=== PATIENT | male | born 1950 | race African-American/Black ===

== ENCOUNTER 2017-05-13 23:03 | Inpatient (IN) | payer OTHER ==
[~2017-05-13] VITALS: Ht 182.9 cm; Wt 96.7 kg
[2017-05-14] MEDS ORDERED: SODIUM CHLORIDE 0.9% 1000ML 1,000 ML IV STA ×2 (00:05→04:12)
[2017-05-14] MEDS ORDERED: ONDANSETRON INJ 2 MG/ML 2 ML VIAL IV STA (00:07)
[2017-05-14] MEDS ORDERED: DEXT1CAP8 PO (00:07)
--- NOTE | 2017-05-14 00:15 | EMERGENCY ROOM VISIT NOTE ---
History Report prepared by Shane: Tyson Kim Under the Supervision of: Dr. Jessika Garnica M.D. First contact with patient: 00:03 Chief Complaint: CHEST PAIN Stated Complaint: CHEST PAIN Nursing Triage Summary: Patient reports illness since Wednesday with chills, vomiting, unable to eat, and a cough that got worse tonight. History of Present Illness The patient is a 66 year old male who presents to the Emergency Room with complaints of a worsening illness for the past 4 days. The patient states that he has been having fevers, chills, body aches, cough, and chest congestion. The patient notes that he hasn't eaten since Wednesday, and he tried to eat yesterday, though he vomited it back up. The patient states that he has only been taking NyQuil, and he took it last night around 2200. He states that he does not take any medications, though he used to be prescribed blood pressure medications. The patient states that he was given a pneumonia shot this year. 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 He has been traveling the last few days, but unable to tolerate it. He has had little po intake and difficulty sleeping. Source of History: patient Onset: four days ago Position: other (global) Quality: other (illness) Timing: worsening Associated Symptoms: + fevers, + chills, + vomiting Note: Associated symptoms: body aches and chest congestion. Review of Systems See HPI for pertinent positives & negatives. A total of 10 systems reviewed and were otherwise negative. Past Medical & Surgical Medical Problems: (1) ARF (acute renal failure) Social History Smoking Status: Never Smoker Marital Status: single Occupation Status: employed Current/Historical Medications Scheduled PRN Ejvydpxtsjfkvgde-[id number]-Sj (Vicks Nyquil Cold & Flu), 1 CAP PO DIRECTED PRN for COLD/FLU Allergies Coded Allergies: Lisinopril (Verified Adverse Reaction, Intermediate, 0, 05/14/17) facial swelling Physical Exam Vital Signs Date Time Temp Pulse Resp B/P (MAP) Pulse Ox O2 Delivery O2 Flow Rate FiO2 05/14/17 02:52 95 20 151/96 99 05/14/17 01:33 84 18 152/89 98 Room Air 05/13/17 23:12 36.8 92 18 145/92 94 Room Air Physical Exam Vital signs reviewed. General: Somewhat ill appearing male, in some discomfort. HEENT: Posterior oropharynx is clear. No scleral icterus, PERRLA, neck supple. Atraumatic. Cardiovascular: Regular rate and rhythm, no extra sounds. Pulmonary: Crackles to the bases bilaterally. Abdomen: Mild epigastric tenderness. No rebound or guarding. No significant tympany to percussion. Soft, nondistended, positive bowel sounds. Musculoskeletal: Atraumatic, no peripheral edema. Neurologic: Patient awake alert and oriented x 3, full strength in all 4 extremities. Cranial nerves 2 through 12 grossly intact. Skin: Warm, dry, no rash Medical Decision & Procedures ER Provider Diagnostic Interpretation: X-ray results as stated below per interpretation by me: Chest X-ray: Patchy lung consolidation in the right middle and lower buck and left lower lung field. Radiology results as stated below per my review and radiologist interpretation: US RENAL: Simple cysts are seen within both kidneys. No stones, masses or hydronephrosis. The ureteral jets were not visualized. Thickening of the urinary bladder which may be secondary to underdistention. Correlate with urinalysis to exclude cystitis. Radiologist: Ernesto Aguilar MD CT CHEST Without Contrast: Patchy consolidation seen throughout the right lung likely representing multifocal pneumonia. No pleural effusion or pneumothorax. Heart and pericardium are unremarkable. No significant adenopathy. No acute osseous abnormality. Radiologist: Ernesto Aguilar MD Laboratory Results Test 05/13/17 23:30 05/14/17 00:08 05/14/17 00:29 05/14/17 00:32 Platelet Estimate NORMAL Total Bilirubin 0.9 mg/dl (0.2-1) Direct Bilirubin 0.2 mg/dl (0-0.2) Aspartate Amino Transf (AST/SGOT) 35 U/L (15-37) Alanine Aminotransferase (ALT/SGPT) 28 U/L (12-78) Alkaline Phosphatase 47 U/L (45-117) Creatine Kinase MB 3.7 ng/ml (0.5-3.6) Creatine Kinase MB Ratio 0.6 (0-3.0) Total Protein 7.2 gm/dl (6.4-8.2) Albumin 3.3 gm/dl (3.4-5.0) Lipase 222 U/L (73-393) Thyroid Stimulating Hormone (TSH) 1.120 uIu/ml (0.300-4.500) Influenza Type A Antigen Neg for Influ A (NEG) Influenza Type B Antigen Neg for Influ B (NEG) Urine Color YELLOW Urine Appearance TURBID (CLEAR) Urine pH 5.0 (4.5-7.5) Urine Specific [place] 1.023 (1.000-1.030) Urine Protein 1+ (NEG) Urine Glucose (UA) NEG (NEG) Urine Ketones NEG (NEG) Urine Occult Blood 1+ (NEG) Urine Nitrite NEG (NEG) Urine Bilirubin NEG (NEG) Urine Urobilinogen NEG (NEG) Urine Leukocyte Esterase NEG (NEG) Urine WBC (Auto) 5-10 /hpf (0-5) Urine RBC (Auto) 0-4 /hpf (0-4) Urine Hyaline Casts (Auto) 1-5 /lpf (0-5) Urine Epithelial Cells (Auto) >30 /lpf (0-5) Urine Bacteria (Auto) NEG (NEG) Urine Renal Epithelial Cells 0-5 /lpf (0-5) Urine Pathogenic Casts 1-5 GRANULAR CASTS /lpf (0) Urine Yeast (Auto) . (NONE PRSENT) Bedside Lactic Acid Venous 1.28 mmol/L (0.90-1.70) Date/Time Source Procedure Growth Status 05/14/17 00:29 Urine , Clean Catch Urine Culture - Final MORE THAN THREE TYPES OF ORGANISMS AZ... Complete Laboratory results per my review. Medications Administered Medications (Trade) Dose Ordered Sig/Mechelle Route Start Time Stop Time Status Last Admin Dose Admin Sodium Chloride 1,000 ml @ 150 mls/hr Q6H40M STAT IV 05/14/17 00:05 05/14/17 04:14 DC 05/14/17 00:37 150 MLS/HR Ondansetron HCl (Zofran Inj) 4 mg NOW STAT IV 05/14/17 00:07 05/14/17 00:08 DC 05/14/17 00:37 4 MG Ceftriaxone Sodium (Rocephin Inj) 1 gm NOW STAT IV 05/14/17 03:52 05/14/17 03:54 DC 05/14/17 04:16 1 GM Azithromycin 500 mg/Dextrose 255 ml @ 125 mls/hr NOW STAT IV 05/14/17 03:52 05/14/17 05:54 DC 05/14/17 04:48 125 MLS/HR Potassium Chloride (Klor-Con M10) 40 meq NOW STAT PO 05/14/17 04:05 05/14/17 04:09 DC 05/14/17 04:16 40 MEQ Sodium Chloride 1,000 ml @ 999 mls/hr Q1H1M STAT IV 05/14/17 04:12 05/14/17 05:12 DC 05/14/17 04:47 999 MLS/HR ECG Indication: other (Flu like symptoms) Rate (beats per minute): 90 Rhythm: normal sinus Findings: no acute ischemic change, no ectopy Change: Patient's electrocardiogram interpreted by me. ED Course 0003: Past medical records reviewed. The patient was evaluated in room C2. A complete history and physical examination was performed. 0005: Sodium Chloride 1000 ml @ 150 mls/hr IV 0007: Zofran 4mg IV 0352: Rocephin 1gm IV 0412: I reviewed the patient's case with Dr. Marisol Hickey. He will evaluate the patient for further management. Medical Decision Differential Diagnoses: Influenza, other viral illness, pneumonia, urinary tract infection, metabolic abnormality, medication effect, cellulitis, meningitis, intra-abdominal source. This pt was evaluated and appeared to be in some discomfort. He is noted to have HTN, which he states is baseline. He was given a BP medication which he couldn't tolerate d/t facial swelling, so he just stopped it. Influenza antigen is negative. Lab work indicates creat of 4.74 with a K of 3.2. IVF were initiated with IV zofran for nausea. Pt CXR is concerning for patchy infiltrates bilaterally. Blood cultures were sent and pt was started on IV ceftriaxone and azithromycin. Chest CT was performed and is read as above. Renal US was performed and is neg for obstruction. Pt case was d/w the hospitalist for further management. Medication Reconcilliation Current Medication List: was personally reviewed by me Blood Pressure Screening Patient's blood pressure: Elevated blood pressure Monitored by the hospitalist Consults Time Called: [phone] Consulting Physician: Dr. Marisol Hickey Returned Call: [phone] I reviewed the patient's case with Dr. Marisol Hickey. He will evaluate the patient for further management. Impression Primary Impression: Pneumonia Additional Impression: Acute renal failure Scribe Attestation The scribe's documentation has been prepared under my direction and personally reviewed by me in its entirety. I confirm that the note above accurately reflects all work, treatment, procedures, and medical decision making performed by me. Departure Information Dispostion Being Evaluated By Hospitalist Referrals No Doctor, Assigned (PCP) Patient Instructions [facility] Problem Qualifiers
[2017-05-14 00:39] LABS: INFLUENZA B ANTIGEN Neg for Influ B (NEG)
[2017-05-14 01:01] LABS: ALBUMIN 3.3 gm/dl (3.4-5.0); CALCIUM 8.2 mg/dl (8.5-10.1); CKMB 3.7 ng/ml (0.5-3.6); CREATININE 4.74 mg/dl (0.60-1.40); POTASSIUM 3.3 mmol/L (3.5-5.1); TOTAL PROTEIN 7.2 gm/dl (6.4-8.2)
[2017-05-14 01:07] LABS: HEMOGLOBIN 13.1 g/dL (14.0-18.0); MEAN CELL VOLUME 88.2 fL (80-100); MEAN CORPUSCULAR HEMOGLOBIN 30.4 pg (25-34); MEAN CORPUSCULAR HGB CONC 34.5 g/dl (32-36); MEAN PLATELET VOLUME 12.1 fL (7.4-10.4); PLATELET COUNT 129 K/uL (130-400); RED CELL DISTRIBUTION WIDTH CV 13.4 % (11.5-14.5); RED CELL DISTRIBUTION WIDTH SD 43.3 fL (36.4-46.3); WHITE BLOOD COUNT 6.65 K/uL (4.8-10.8)
[2017-05-14 01:08] LABS: BASO % 0.2 %; BASO ABS # 0.01 K/uL (0-0.2); EOS % 0.2 %; EOS ABS # 0.01 K/uL (0-0.5); IG# 0.02 K/uL (0.00-0.02); LYMPH % 10.5 %; NEUT % 82.8 %; NEUT ABS # 5.51 K/uL (1.4-6.5)
[2017-05-14] MEDS ORDERED: AZITHROMYCIN IV 500 MG in DEXTROSE 5% 250ML 250 ML IV STA (03:52)
[2017-05-14] MEDS ORDERED: CEFTRIAXONE SOD INJ 1 GM ADDVIAL IV STA (03:52)
[2017-05-14] MEDS ORDERED: POTASSIUM CHLORIDE 10 MEQ TABCR PO STA (04:05)
[2017-05-14 04:39] LABS: HEMATOCRIT 35.3 % (42-52); HEMOGLOBIN 12.1 g/dL (14.0-18.0); MEAN CELL VOLUME 87.2 fL (80-100); MEAN CORPUSCULAR HEMOGLOBIN 29.9 pg (25-34); MEAN CORPUSCULAR HGB CONC 34.3 g/dl (32-36); PLATELET COUNT 118 K/uL (130-400); RED CELL DISTRIBUTION WIDTH CV 13.2 % (11.5-14.5); RED CELL DISTRIBUTION WIDTH SD 42.6 fL (36.4-46.3); WHITE BLOOD COUNT 6.67 K/uL (4.8-10.8)
[2017-05-14 04:54] LABS: BASO % 0.1 %; BASO ABS # 0.01 K/uL (0-0.2); IG# 0.02 K/uL (0.00-0.02); LYMPH % 10.9 %; LYMPH ABS # 0.73 K/uL (1.2-3.4); MONO ABS # 0.67 K/uL (0.11-0.59); NEUT % 78.7 %; NEUT ABS # 5.24 K/uL (1.4-6.5); RETIC COUNT % 0.7 % (0.5-2.0)
[2017-05-14 05:02] LABS: CALCIUM 7.7 mg/dl (8.5-10.1); CREATININE 4.46 mg/dl (0.60-1.40); POTASSIUM 3.2 mmol/L (3.5-5.1)
[2017-05-14 05:14] LABS: PTT PATIENT 33.6 SECONDS (21.0-31.0)
[2017-05-14 05:15] VITALS: BP 162/84; PULSE 91; TEMP 37.3; O2SAT 96; Ht 182.9 cm; Wt 96.7 kg
[2017-05-14] MEDS ORDERED: AMPICILLIN/SULBACTAM SOD INJ 3,000 MG in SODIUM CHLORIDE 0.9% 100ML 100 ML IV STA (05:22)
[2017-05-14] MEDS ORDERED: AMLODIPINE BESYLATE 5 MG TAB PO ONE (05:28)
[2017-05-14] MEDS ORDERED: ALBUT/IPRATROP 3MG/0.5MG NEB 3 ML VIAL INH STA (05:28)
[2017-05-14] MEDS ORDERED: ALBUT/IPRATROP 3MG/0.5MG NEB 3 ML VIAL INH PRN (05:30)
[2017-05-14] MEDS ORDERED: PROCHLORPERAZINE INJ 5 MG in SYRINGE 4 ML IV PRN (05:30)
[2017-05-14] MEDS ORDERED: HYDROmorphone INJ 0.5 MG/0.5 ML SYR IV PRN (05:30)
[2017-05-14] MEDS ORDERED: INFLUENZA VIRUS QUAD VACCINE 0.5 ML SYR IM. ONE (05:30)
[2017-05-14] MEDS ORDERED: INFLUENZA ADMINISTRATION CHARGE ONE (05:45)
[2017-05-14] MEDS ORDERED: HEPARIN SOD 5000 UNIT/0.5 ML CARP SQ SCH (06:00)
[2017-05-14] MEDS: ACETAMINOPHEN 325 MG TAB PO PRN ×2 (06:08→19:41)
[2017-05-14] MEDS: NSS + 20MEQ KCL 1000ML 1,000 ML IV SCH ×2 (06:09→15:50)
[2017-05-14 06:22] VITALS: PULSE 90; O2SAT 91
--- NOTE | 2017-05-14 06:47 | DIAGNOSTIC IMAGING REPORT ---
CHEST ONE VIEW PORTABLE CLINICAL HISTORY: Flulike symptoms COMPARISON STUDY: No previous studies for comparison. FINDINGS: The heart is borderline enlarged. There are right mid and lower lung zone airspace opacities consistent with a pneumonia. Films subsequent to treatment are recommended in follow-up. The left lung appears clear. There are no significant pleural effusions.[ IMPRESSION: Right mid and lower lung zone airspace opacities consistent with a pneumonia. Films subsequent to treatment are recommended in follow-up. Electronically signed by: Drew Paige M.D. 05/14/2017 6:46 AM Dictated Date/Time: 05/14/2017 6:45 AM
--- NOTE | 2017-05-14 07:12 | HISTORY & PHYSICAL EXAMINATION ---
DATE OF ADMISSION: 05/14/2017 PRIMARY CARE DOCTOR: Dr. Harrison Martínez from [place], [place]. CHIEF COMPLAINT: Weakness, shortness of breath, cough. HISTORY OF PRESENT ILLNESS: History obtained from patient and ER provider. 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 Five days ago he left [place] to deliver some goods to [place]. Was sick, weak, cough symptoms initially productive of clear sputum. Patient also had chills, body aches, nausea, vomiting, poor appetite. Cough later productive of yellow sputum, worsening, increasing shortness of breath. Sick contacts about 2 weeks ago. Patient taking 2 tablets [id number] Aleve daily, NyQuil since illness. Denies abdominal pain, black/bloody stools, diarrhea He had dropped off a shipment at [place] and was on his way back to [place]. He could not proceed any longer. At the Emergency Room, px received ceftriaxone and azithromycin for pneumonia. MEDICAL HISTORY: As above. No known history of anemia, kidney problems. He had a colonoscopy about 2 years ago. Started on RYAN inhibitor by PCP last month which patient stopped after a few days because it made him sick, facial swelling from medication as per daughter. History pneumococcal vaccine. No recent seasonal flu vaccine. MEDICATIONS: Aleve p.r.n. FAMILY HISTORY: Prostate cancer. PERSONAL AND SOCIAL HISTORY: Nonsmoker, no chronic intake of alcoholic beverages. 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 -[place] ethnicity. REVIEW OF SYSTEMS: As per HPI. Al1 10 systems reviewed. All other ROS negative. PHYSICAL EXAMINATION: VITAL SIGNS: Blood pressure was noted to be 145/92, pulse rate 92, RR 18, temperature 36.8, sats 94 on room air. GENERAL: Noted to be slightly uncomfortable, no respiratory distress, pleasant. SKIN: Pallor. Warm. HEENT: Alopecia. Pale palpebral conjunctivae. No ptosis. Dry mucosa. Mask covering nose and mouth. Neck : Supple. No tenderness. CHEST: Clear to auscultation. No tenderness. HEART: Regular rate and rhythm. No murmur. ABDOMEN: Some distention, nontender. RECTAL: Intact sphincter, yellow stool, heme negative. EXTREMITIES: No edema. Nontender. No gross deformities. NEUROLOGIC: Coherent. No gross focality. LABORATORY DATA: Hemoglobin was noted to be 13.1, hematocrit 38, white cell count 6.6, platelets 129. Sodium 134, potassium 3.3, chloride 97, CO2 of 28, BUN 60, creatinine 4.74, glucose 141. CT chest initial read patchy consolidation right lung, multifocal. Renal ultrasound initial read simple cyst, thickening of the bladder secondary to underdistention. UA, occult blood, epithelial cells, WBC 5-10. Initial flu swab negative ASSESSMENT: 1. Community-acquired pneumonia possible aspiration. No sepsis 2. Hypokalemia, acute renal failure secondary to illness, clinical dehydration. Unknown baseline NSAID use contributory to kidney dysfunction 3. HTN, elevated hx ACEI intolerance 4. Anemia, unknown baseline. 5. thrombocytopenia, unknown duration 6. Hyperglycemia rule out DM PLAN: GMF Unasyn for aspiration monitor creatinine response to IV fluids, replace potassium. Initiate Norvasc for blood pressure control. Anemia workup. Check hemoglobin A1c PT, OT eval. Obtain recent outpatient records/labwork DVT prophylaxis, SCDs RE thrombocytopenia Full code. Patient's daughter requesting updated from providers. Miss Radha Daniels at [phone]. [facility]
[2017-05-14 07:24] VITALS: BP 125/73; PULSE 93; TEMP 37.3; O2SAT 96
--- NOTE | 2017-05-14 07:25 | DIAGNOSTIC IMAGING REPORT ---
(CHEST) THORAX WITHOUT CT DOSE: 429.88 mGy.cm HISTORY: pulmonary infiltrates, no fever, normal WBC TECHNIQUE: Multiaxial CT images of the chest were performed without contrast. A dose lowering technique was utilized adhering to the principles of ALARA. COMPARISON: Chest 05/14/2017. FINDINGS: The central airways are patent. No pneumothorax. No pleural effusions. Linear densities at the base of the left lower lobe consistent with subsegmental atelectasis. Otherwise, the left lung is clear. Patchy groundglass and consolidative airspace opacity seen throughout the majority of the right lung. This favors a pneumonia. No suspicious lytic or blastic osseous lesions. The visualized liver, spleen, and adrenal glands are unremarkable. Subcentimeter mediastinal lymph nodes do not meet CT criteria for pathologic involvement. The heart is top normal in size. Normal caliber thoracic aorta. IMPRESSION: Multifocal groundglass and consolidative airspace opacities seen throughout the majority of the right lung. This favors a pneumonia. However, follow-up chest x-ray is recommended to ensure complete resolution. If the patient is not presenting with pneumonia type symptoms then bronchoscopy should be considered to exclude the less likely possibility of an adenocarcinoma in situ. Electronically signed by: Darnell Ulrich M.D. 05/14/2017 7:24 AM Dictated Date/Time: 05/14/2017 7:18 AM
--- NOTE | 2017-05-14 07:27 | DIAGNOSTIC IMAGING REPORT ---
ULTRASOUND KIDNEYS AND BLADDER CLINICAL HISTORY: Renal failure. COMPARISON STUDY: No priors. TECHNIQUE: Real-time, grayscale, and color flow sonography of the kidneys and bladder is performed. Images are reviewed in the transverse and longitudinal planes. FINDINGS: Kidneys: The kidneys are normal in size and echotexture. The right kidney measures 10.8 x 5.7 x 5.2 cm and the left kidney measures 12.2 x 5.8 x 6.1 cm. There is no hydronephrosis. No shadowing renal calculi are identified. A 2.5 cm parapelvic cyst is noted on the right. A 5.3 cm cyst is noted in the left kidney. Additional smaller cysts are noted. There is no sonographic evidence of contour deforming renal mass lesion. No perinephric fluid is identified. Bladder: The partially distended bladder appears mildly thick walled. Ureteral jets were not seen. IMPRESSION: 1. The kidneys are normal in size and without hydronephrosis. 2. The bladder wall appears mildly thickened. Correlation with urinalysis will be required. Electronically signed by: Luis Alanis M.D. 05/14/2017 7:25 AM Dictated Date/Time: 05/14/2017 7:24 AM
[2017-05-14 07:28] LABS: INFLUENZA A PCR Uninterpretable (NEG); INFLUENZA B PCR Uninterpretable (NEG)
[2017-05-14] MEDS ORDERED: AMPICILLIN/SULBACTAM CONSULT ACTIVE PRN (09:00)
[2017-05-14 12:48] LABS: INFLUENZA A PCR POS for Influ A (NEG); INFLUENZA B PCR Neg for Influ B (NEG)
[2017-05-14] MEDS ORDERED: OSELTAMIVIR PHOSPHATE SUSP 30 MG/5 ML UDP PO ONE (13:15)
[2017-05-14] MEDS ORDERED: TAMIFLU PHARMACY CONSULT IN PROGRESS PRN (14:45)
[2017-05-14] MEDS: OSELTAMIVIR PHOSPHATE SUSP 30 MG/5 ML UDP PO SCH (15:10)
[2017-05-14 15:44] VITALS: BP 138/78; PULSE 79; TEMP 38; O2SAT 95
[2017-05-14] MEDS: AMPICILLIN/SULBACTAM SOD INJ 3,000 MG in SODIUM CHLORIDE 0.9% 100ML 100 ML IV SCH (17:58)
--- NOTE | 2017-05-14 20:35 | Progress Note ---
Medicine Progress Note Date & Time of Visit: May 14, 2017 at ~ 17:00 . Subjective CC: Follow-up visit for influenza and VAN. HPI: Admitted during the night with flu symptoms and acute kidney injury. Influenza Ag negative, but PCR + for influenza A. Febrile this afternoon. Generalized malaise. Intermittent coughing. ROS: General- as noted above in HPI Resp- as noted above in HPI Cardiac- no chest pain, no edema GI- no nausea, no vomiting, no diarrhea - no dysuria, no difficulty voiding . Objective Last 8 Hrs Date Time Temp Pulse Resp B/P (MAP) Pulse Ox O2 Delivery O2 Flow Rate FiO2 05/14/17 16:00 Room Air 05/14/17 15:44 38.0 79 20 138/78 (98) 95 Room Air Physical Exam: General- lying in bed; no distress Eyes- anicteric Lungs- clear to auscultation; no respiratory distress Cardiovascular- RRR; no gallop; no JVD; no pretibial edema Abdomen- + bowel sounds, soft, nontender Extremities- no cyanosis; no calf tenderness Neuro- alert, oriented Skin- warm & dry . Laboratory Results: Last 24 Hours Test 05/13/17 23:30 05/14/17 00:00 05/14/17 00:08 05/14/17 00:29 White Blood Count 6.65 K/uL Red Blood Count 4.31 M/uL Hemoglobin 13.1 g/dL Hematocrit 38.0 % Mean Corpuscular Volume 88.2 fL Mean Corpuscular Hemoglobin 30.4 pg Mean Corpuscular Hemoglobin Concent 34.5 g/dl Platelet Count 129 K/uL Mean Platelet Volume 12.1 fL Neutrophils (%) (Auto) 82.8 % Lymphocytes (%) (Auto) 10.5 % Monocytes (%) (Auto) 6.0 % Eosinophils (%) (Auto) 0.2 % Basophils (%) (Auto) 0.2 % Neutrophils # (Auto) 5.51 K/uL Lymphocytes # (Auto) 0.70 K/uL Monocytes # (Auto) 0.40 K/uL Eosinophils # (Auto) 0.01 K/uL Basophils # (Auto) 0.01 K/uL RDW Standard Deviation 43.3 fL RDW Coefficient of Variation 13.4 % Immature Granulocyte % (Auto) 0.3 % Immature Granulocyte # (Auto) 0.02 K/uL Platelet Estimate NORMAL Sodium Level 134 mmol/L Potassium Level 3.3 mmol/L Chloride Level 97 mmol/L Carbon Dioxide Level 28 mmol/L Anion Gap 9.0 mmol/L Blood Urea Nitrogen 62 mg/dl Creatinine 4.74 mg/dl Est Creatinine Clear Calc Drug Dose 18.6 ml/min Estimated GFR () 13.8 Estimated GFR (Non- 11.9 BUN/Creatinine Ratio 13.0 Random Glucose 141 mg/dl Calcium Level 8.2 mg/dl Total Bilirubin 0.9 mg/dl Direct Bilirubin 0.2 mg/dl Aspartate Amino Transf (AST/SGOT) 35 U/L Alanine Aminotransferase (ALT/SGPT) 28 U/L Alkaline Phosphatase 47 U/L Total Creatine Kinase 650 U/L Creatine Kinase MB 3.7 ng/ml Creatine Kinase MB Ratio 0.6 Total Protein 7.2 gm/dl Albumin 3.3 gm/dl Lipase 222 U/L Thyroid Stimulating Hormone (TSH) 1.120 uIu/ml Influenza Type A (RT-PCR) Uninterpretable Influenza Type B (RT-PCR) Uninterpretable Influenza Type A Antigen Neg for Influ A Influenza Type B Antigen Neg for Influ B Urine Color YELLOW Urine Appearance TURBID Urine pH 5.0 Urine Specific [place] 1.023 Urine Protein 1+ Urine Glucose (UA) NEG Urine Ketones NEG Urine Occult Blood 1+ Urine Nitrite NEG Urine Bilirubin NEG Urine Urobilinogen NEG Urine Leukocyte Esterase NEG Urine WBC (Auto) 5-10 /hpf Urine RBC (Auto) 0-4 /hpf Urine Hyaline Casts (Auto) 1-5 /lpf Urine Epithelial Cells (Auto) >30 /lpf Urine Bacteria (Auto) NEG Urine Renal Epithelial Cells 0-5 /lpf Urine Pathogenic Casts 1-5 GRANULAR CASTS /lpf Urine Yeast (Auto) . Test 05/14/17 00:32 05/14/17 04:24 05/14/17 10:15 Bedside Lactic Acid Venous 1.28 mmol/L White Blood Count 6.67 K/uL Red Blood Count 4.05 M/uL Hemoglobin 12.1 g/dL Hematocrit 35.3 % Mean Corpuscular Volume 87.2 fL Mean Corpuscular Hemoglobin 29.9 pg Mean Corpuscular Hemoglobin Concent 34.3 g/dl Platelet Count 118 K/uL Mean Platelet Volume 12.0 fL Neutrophils (%) (Auto) 78.7 % Lymphocytes (%) (Auto) 10.9 % Monocytes (%) (Auto) 10.0 % Eosinophils (%) (Auto) 0.0 % Basophils (%) (Auto) 0.1 % Neutrophils # (Auto) 5.24 K/uL Lymphocytes # (Auto) 0.73 K/uL Monocytes # (Auto) 0.67 K/uL Eosinophils # (Auto) 0.00 K/uL Basophils # (Auto) 0.01 K/uL RDW Standard Deviation 42.6 fL RDW Coefficient of Variation 13.2 % Immature Granulocyte % (Auto) 0.3 % Immature Granulocyte # (Auto) 0.02 K/uL Hyposegmented Neutrophils 1+ Absolute Reticulocyte Count 0.03 10^6/uL Percent Reticulocyte Count 0.7 % Prothrombin Time 10.2 SECONDS Prothromb Time International Ratio 1.0 Activated Partial Thromboplast Time 33.6 SECONDS Partial Thromboplastin Ratio 1.3 Sodium Level 135 mmol/L Potassium Level 3.2 mmol/L Chloride Level 101 mmol/L Carbon Dioxide Level 25 mmol/L Anion Gap 9.0 mmol/L Blood Urea Nitrogen 59 mg/dl Creatinine 4.46 mg/dl Est Creatinine Clear Calc Drug Dose 19.8 ml/min Estimated GFR () 14.8 Estimated GFR (Non- 12.8 BUN/Creatinine Ratio 13.2 Random Glucose 92 mg/dl Estimated Average Glucose 126 mg/dl Hemoglobin A1c 6.0 % Calcium Level 7.7 mg/dl Magnesium Level 2.4 mg/dl Iron Level 35 mcg/dl Total Iron Binding Capacity 199 mcg/dl Transferrin 157 mg/dl Transferrin % Saturation 16 % Ferritin 435.9 ng/ml Total Creatine Kinase 533 U/L Vitamin B12 Level 453 pg/mL Folate 10.26 ng/mL Hepatitis C Antibody Screen NEG Influenza Type A (RT-PCR) POS for Influ A Influenza Type B (RT-PCR) Neg for Influ B Date/Time Source Procedure Growth Status 05/14/17 00:27 Blood Blood Culture Pending Received 05/14/17 00:23 Blood Blood Culture Pending Received 05/14/17 00:29 Urine , Clean Catch Urine Culture Pending Received Assessment & Plan INFLUENZA A Confirmed by PCR. Oseltamivir with reduced dose for VAN. PNEUMONIA Chest x-ray demonstrated infiltrates in right mid and lower lung. Has influenza A. May have superimposed pneumonia, possibly aspiration. Continue Rx with IV ampicillin / sulbactam. ACUTE KIDNEY INJURY Serum creatinine 4.74 at time of admission. No history renal disease. Renal US negative for obstruction or apparent CKD. Patient reports poor PO intake because of illness. Continue IV fluids. Follow. HYPOKALEMIA Serum K 3.3, 3.2. IV replacement. Follow. HYPERTENSION Continue amlodipine. ANEMIA Hgb 13.1, 12.1. Baseline unknown. Follow. THROMBOCYTOPENIA Plts 129,000, 118,000. Baseline unknown. Follow. VTE PROPHYLAXIS Received 1 dose of SQ heparin, but held due to thrombocytopenia. SCD's. Ambulate. DISPOSITION Expected discharge to home. Follow-up with PCP. . Current Inpatient Medications: Current Inpatient Medications Medications (Trade) Dose Ordered Sig/Mechelle Route Start Time Stop Time Status Last Admin Dose Admin Acetaminophen (Tylenol Tab) 650 mg Q4H PRN PO 05/14/17 05:30 06/13/17 05:29 05/14/17 19:41 650 MG Hydromorphone HCl (Dilaudid Inj) 0.5 mg Q3H PRN IV 05/14/17 05:30 05/28/17 05:29 Tramadol HCl (Ultram Tab) 25 mg Q6H PRN PO 05/14/17 05:30 06/13/17 05:29 Prochlorperazine Edisylate 5 mg/ Syringe 5 ml @ 5 mls/min Q6H PRN IV 05/14/17 05:30 06/13/17 05:29 Potassium Chloride/Sodium Chloride 1,000 ml @ 100 mls/hr Q10H IV 05/14/17 05:30 05/15/17 05:29 05/14/17 15:50 100 MLS/HR Albuterol/ Ipratropium (Duoneb) 3 ml Q2H PRN INH 05/14/17 05:30 06/13/17 05:29 Ampicillin Sodium/ Sulbactam Sodium (Consult) 1 ea UD PRN N/A 05/14/17 09:00 06/13/17 08:59 Amlodipine Besylate (Norvasc Tab) 2.5 mg QAM PO 05/15/17 09:00 06/14/17 08:59 Ampicillin Sodium/ Sulbactam Sodium 3000 mg/Sodium Chloride 108 ml @ 216 mls/hr Q12H IV 05/14/17 18:00 05/21/17 17:59 05/14/17 17:58 216 MLS/HR Oseltamivir Phosphate (Tamiflu Susp) 30 mg DAILY PO 05/14/17 14:45 05/18/17 09:01 05/14/17 15:10 30 MG Miscellaneous Information 1 ea UD PRN N/A 05/14/17 14:45 06/13/17 14:44
[2017-05-14 23:58] VITALS: BP 148/83; PULSE 70; TEMP 37.4; O2SAT 95
[2017-05-15] MEDS: NSS + 20MEQ KCL 1000ML 1,000 ML IV SCH ×3 (01:58→20:03)
[2017-05-15] MEDS: AMPICILLIN/SULBACTAM SOD INJ 3,000 MG in SODIUM CHLORIDE 0.9% 100ML 100 ML IV SCH ×2 (05:33→17:30)
[2017-05-15 06:18] LABS: BASO % 0.2 %; BASO ABS # 0.01 K/uL (0-0.2); HEMOGLOBIN 11.1 g/dL (14.0-18.0); IG# 0.02 K/uL (0.00-0.02); LYMPH % 20.9 %; LYMPH ABS # 1.16 K/uL (1.2-3.4); MEAN CELL VOLUME 88.5 fL (80-100); MEAN CORPUSCULAR HEMOGLOBIN 29.8 pg (25-34); MEAN CORPUSCULAR HGB CONC 33.6 g/dl (32-36); MEAN PLATELET VOLUME 11.5 fL (7.4-10.4); MONO % 14.1 %; MONO ABS # 0.78 K/uL (0.11-0.59); NEUT % 64.4 %; NEUT ABS # 3.57 K/uL (1.4-6.5); PLATELET COUNT 125 K/uL (130-400); RED CELL DISTRIBUTION WIDTH CV 13.5 % (11.5-14.5); WHITE BLOOD COUNT 5.54 K/uL (4.8-10.8)
[2017-05-15 06:57] LABS: CALCIUM 7.7 mg/dl (8.5-10.1); CREATININE 4.24 mg/dl (0.60-1.40)
[2017-05-15 07:13] VITALS: BP 149/82; PULSE 74; TEMP 37.6; O2SAT 95
[2017-05-15] MEDS: AMLODIPINE BESYLATE 5 MG TAB PO SCH (08:04)
[2017-05-15] MEDS: OSELTAMIVIR PHOSPHATE SUSP 30 MG/5 ML UDP PO SCH (08:05)
[2017-05-15] MEDS: ACETAMINOPHEN 325 MG TAB PO PRN (08:05)
[2017-05-15 15:17] VITALS: BP 156/90; PULSE 74; TEMP 37.1; O2SAT 95
--- NOTE | 2017-05-15 17:16 | Progress Note ---
Medicine Progress Note Date & Time of Visit: May 15, 2017 at 16:00 . Subjective CC: Follow-up visit for influenza, pneumonia, and VAN. HPI: Feels better. No fever. Cough improved. No SOB. No chest pain. No nausea, vomiting, diarrhea. No urinary symptoms. 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). ROS: as noted above in HPI . Objective Last 8 Hrs Date Time Temp Pulse Resp B/P (MAP) Pulse Ox O2 Delivery O2 Flow Rate FiO2 05/15/17 15:59 Room Air 05/15/17 15:17 37.1 74 18 156/90 (112) 95 Room Air Physical Exam: General- lying in bed; no distress Eyes- anicteric Lungs- rales, rhonchi right chest; no respiratory distress Cardiovascular- RRR; no gallop; no JVD; no pretibial edema Abdomen- + bowel sounds, soft, nontender Extremities- no cyanosis; no calf tenderness Neuro- alert, oriented Skin- warm & dry . Laboratory Results: Last 24 Hours Test 05/15/17 05:46 White Blood Count 5.54 K/uL Red Blood Count 3.73 M/uL Hemoglobin 11.1 g/dL Hematocrit 33.0 % Mean Corpuscular Volume 88.5 fL Mean Corpuscular Hemoglobin 29.8 pg Mean Corpuscular Hemoglobin Concent 33.6 g/dl Platelet Count 125 K/uL Mean Platelet Volume 11.5 fL Neutrophils (%) (Auto) 64.4 % Lymphocytes (%) (Auto) 20.9 % Monocytes (%) (Auto) 14.1 % Eosinophils (%) (Auto) 0.0 % Basophils (%) (Auto) 0.2 % Neutrophils # (Auto) 3.57 K/uL Lymphocytes # (Auto) 1.16 K/uL Monocytes # (Auto) 0.78 K/uL Eosinophils # (Auto) 0.00 K/uL Basophils # (Auto) 0.01 K/uL RDW Standard Deviation 44.0 fL RDW Coefficient of Variation 13.5 % Immature Granulocyte % (Auto) 0.4 % Immature Granulocyte # (Auto) 0.02 K/uL Sodium Level 137 mmol/L Potassium Level 4.0 mmol/L Chloride Level 107 mmol/L Carbon Dioxide Level 25 mmol/L Anion Gap 5.0 mmol/L Blood Urea Nitrogen 51 mg/dl Creatinine 4.24 mg/dl Est Creatinine Clear Calc Drug Dose 20.7 ml/min Estimated GFR () 15.8 Estimated GFR (Non- 13.6 BUN/Creatinine Ratio 12.0 Random Glucose 85 mg/dl Calcium Level 7.7 mg/dl Assessment & Plan INFLUENZA A Confirmed by PCR. Oseltamivir with reduced dose for VAN. PNEUMONIA Chest x-ray demonstrated infiltrates in right mid and lower lung. Has influenza A. May have superimposed pneumonia, possibly aspiration. Continue Rx with IV ampicillin / sulbactam. ACUTE KIDNEY INJURY Serum creatinine 4.74 at time of admission. No history renal disease. Renal US negative for obstruction or apparent CKD. Patient reports poor PO intake because of illness. Serum creatinine this today = 4.24. Continue IV fluids. Follow. HYPOKALEMIA Serum K 3.3, 3.2. IV replacement. K today = 4.0. Follow. HYPERTENSION Continue amlodipine. ANEMIA Hgb 13.1, 12.111.1. Baseline unknown. Follow. THROMBOCYTOPENIA Plts 129,000, 118,000, 125,000. Baseline unknown. Follow. VTE PROPHYLAXIS Received 1 dose of SQ heparin, but held due to thrombocytopenia. SCD's. Plt count improving; resume SQ heparin. Ambulate. DISPOSITION Expected discharge to home. Follow-up with PCP. . Current Inpatient Medications: Current Inpatient Medications Medications (Trade) Dose Ordered Sig/Mechelle Route Start Time Stop Time Status Last Admin Dose Admin Acetaminophen (Tylenol Tab) 650 mg Q4H PRN PO 05/14/17 05:30 06/13/17 05:29 05/15/17 08:05 650 MG Hydromorphone HCl (Dilaudid Inj) 0.5 mg Q3H PRN IV 05/14/17 05:30 05/28/17 05:29 Tramadol HCl (Ultram Tab) 25 mg Q6H PRN PO 05/14/17 05:30 06/13/17 05:29 Prochlorperazine Edisylate 5 mg/ Syringe 5 ml @ 5 mls/min Q6H PRN IV 05/14/17 05:30 06/13/17 05:29 Potassium Chloride/Sodium Chloride 1,000 ml @ 150 mls/hr Q6H40M IV 05/14/17 05:30 06/12/17 05:29 05/15/17 11:41 100 MLS/HR Albuterol/ Ipratropium (Duoneb) 3 ml Q2H PRN INH 05/14/17 05:30 06/13/17 05:29 Ampicillin Sodium/ Sulbactam Sodium (Consult) 1 ea UD PRN N/A 05/14/17 09:00 06/13/17 08:59 Amlodipine Besylate (Norvasc Tab) 2.5 mg QAM PO 05/15/17 09:00 06/14/17 08:59 05/15/17 08:04 2.5 MG Ampicillin Sodium/ Sulbactam Sodium 3000 mg/Sodium Chloride 108 ml @ 216 mls/hr Q12H IV 05/14/17 18:00 05/21/17 17:59 05/15/17 05:33 216 MLS/HR Oseltamivir Phosphate (Tamiflu Susp) 30 mg DAILY PO 05/14/17 14:45 05/18/17 09:01 05/15/17 08:05 30 MG Miscellaneous Information 1 ea UD PRN N/A 05/14/17 14:45 06/13/17 14:44
[2017-05-15] MEDS: HEPARIN SOD 5000 UNIT/0.5 ML CARP SQ SCH (20:03)
[2017-05-15 23:48] VITALS: BP 176/90; PULSE 81; TEMP 37.1; O2SAT 93
[2017-05-16] MEDS: NSS + 20MEQ KCL 1000ML 1,000 ML IV SCH ×4 (01:44→22:13)
[2017-05-16] MEDS: ACETAMINOPHEN 325 MG TAB PO PRN (01:44)
[2017-05-16 02:45] VITALS: BP 156/83; PULSE 77
[2017-05-16] MEDS: AMPICILLIN/SULBACTAM SOD INJ 3,000 MG in SODIUM CHLORIDE 0.9% 100ML 100 ML IV SCH ×2 (05:48→18:01)
[2017-05-16 07:13] LABS: HEMATOCRIT 32.3 % (42-52); HEMOGLOBIN 11.1 g/dL (14.0-18.0); MEAN CELL VOLUME 87.8 fL (80-100); MEAN CORPUSCULAR HEMOGLOBIN 30.2 pg (25-34); MEAN CORPUSCULAR HGB CONC 34.4 g/dl (32-36); MEAN PLATELET VOLUME 10.6 fL (7.4-10.4); PLATELET COUNT 124 K/uL (130-400); RED CELL DISTRIBUTION WIDTH CV 13.3 % (11.5-14.5); WHITE BLOOD COUNT 6.44 K/uL (4.8-10.8)
[2017-05-16 07:16] VITALS: BP 173/95; PULSE 71; TEMP 37.1; O2SAT 96
[2017-05-16 07:45] LABS: CALCIUM 7.7 mg/dl (8.5-10.1); CREATININE 3.56 mg/dl (0.60-1.40); POTASSIUM 4.3 mmol/L (3.5-5.1)
[2017-05-16] MEDS: OSELTAMIVIR PHOSPHATE SUSP 30 MG/5 ML UDP PO SCH (08:11)
[2017-05-16] MEDS: HEPARIN SOD 5000 UNIT/0.5 ML CARP SQ SCH ×2 (08:12→22:13)
[2017-05-16 08:31] LABS: BASO % 0.2 %; BASO ABS # 0.01 K/uL (0-0.2); EOS % 0.2 %; EOS ABS # 0.01 K/uL (0-0.5); IG# 0.05 K/uL (0.00-0.02); LYMPH % 24.5 %; LYMPH ABS # 1.58 K/uL (1.2-3.4); MONO % 18.6 %; NEUT % 55.7 %; NEUT ABS # 3.59 K/uL (1.4-6.5)
[2017-05-16] MEDS: AMLODIPINE BESYLATE 5 MG TAB PO SCH (08:48)
[2017-05-16 15:09] VITALS: BP 147/82; PULSE 70; TEMP 36.9; O2SAT 97
--- NOTE | 2017-05-16 19:52 | Progress Note ---
Medicine Progress Note Date & Time of Visit: May 16, 2017 at 15:30 . Subjective CC: Follow-up visit for influenza, pneumonia, and VAN. HPI: Feels better. No fever. Persistent congested cough; mild SOB. No chest pain. Few loose stools today. No nausea, vomiting. Urine output good; no dysuria. ROS: as noted above in HPI . Objective Last 8 Hrs Date Time Temp Pulse Resp B/P (MAP) Pulse Ox O2 Delivery O2 Flow Rate FiO2 05/16/17 16:00 Room Air 05/16/17 15:09 36.9 70 18 147/82 (103) 97 Room Air Physical Exam: General- lying in bed; no distress Eyes- anicteric Lungs- rales, rhonchi right chest; no respiratory distress Cardiovascular- RRR; no gallop; no JVD; no pretibial edema Abdomen- + bowel sounds, soft, nontender Extremities- no cyanosis; no calf tenderness Neuro- alert, oriented Skin- warm & dry . Laboratory Results: Last 24 Hours Test 05/16/17 07:03 White Blood Count 6.44 K/uL Red Blood Count 3.68 M/uL Hemoglobin 11.1 g/dL Hematocrit 32.3 % Mean Corpuscular Volume 87.8 fL Mean Corpuscular Hemoglobin 30.2 pg Mean Corpuscular Hemoglobin Concent 34.4 g/dl Platelet Count 124 K/uL Mean Platelet Volume 10.6 fL Neutrophils (%) (Auto) 55.7 % Lymphocytes (%) (Auto) 24.5 % Monocytes (%) (Auto) 18.6 % Eosinophils (%) (Auto) 0.2 % Basophils (%) (Auto) 0.2 % Neutrophils # (Auto) 3.59 K/uL Lymphocytes # (Auto) 1.58 K/uL Monocytes # (Auto) 1.20 K/uL Eosinophils # (Auto) 0.01 K/uL Basophils # (Auto) 0.01 K/uL RDW Standard Deviation 43.0 fL RDW Coefficient of Variation 13.3 % Immature Granulocyte % (Auto) 0.8 % Immature Granulocyte # (Auto) 0.05 K/uL Large Platelets 1+ Sodium Level 140 mmol/L Potassium Level 4.3 mmol/L Chloride Level 110 mmol/L Carbon Dioxide Level 22 mmol/L Anion Gap 8.0 mmol/L Blood Urea Nitrogen 41 mg/dl Creatinine 3.56 mg/dl Est Creatinine Clear Calc Drug Dose 24.6 ml/min Estimated GFR () 19.5 Estimated GFR (Non- 16.8 BUN/Creatinine Ratio 11.5 Random Glucose 81 mg/dl Calcium Level 7.7 mg/dl Assessment & Plan INFLUENZA A Confirmed by PCR. Oseltamivir with reduced dose for VAN. PNEUMONIA Chest x-ray demonstrated infiltrates in right mid and lower lung. Has influenza A as discussed above. May have superimposed pneumonia, possibly aspiration. Continue Rx with IV ampicillin / sulbactam. ACUTE KIDNEY INJURY Serum creatinine 4.74 at time of admission. No history renal disease. Renal US negative for obstruction or apparent CKD. Patient reports poor PO intake because of illness. Serum creatinine this today = 3.56. Continue IV fluids. Follow. HYPOKALEMIA Serum K 3.3, 3.2. IV replacement. K today = 4.3. Follow. HYPERTENSION Continue amlodipine. ANEMIA Hgb 13.1 --> --> 11.1. Baseline unknown. Follow. THROMBOCYTOPENIA Plts 129,000 --> --> 124,000. Follow. DIARRHEA 3 loose stools. Not receiving laxatives. Check stools for C diff. VTE PROPHYLAXIS Received 1 dose of SQ heparin, but held due to thrombocytopenia. SCD's. Plt count improved; resumed SQ heparin. Ambulate. DISPOSITION Expected discharge to home. Follow-up with PCP. . Current Inpatient Medications: Current Inpatient Medications Medications (Trade) Dose Ordered Sig/Mechelle Route Start Time Stop Time Status Last Admin Dose Admin Acetaminophen (Tylenol Tab) 650 mg Q4H PRN PO 05/14/17 05:30 06/13/17 05:29 05/16/17 01:44 650 MG Hydromorphone HCl (Dilaudid Inj) 0.5 mg Q3H PRN IV 05/14/17 05:30 05/28/17 05:29 Tramadol HCl (Ultram Tab) 25 mg Q6H PRN PO 05/14/17 05:30 06/13/17 05:29 Prochlorperazine Edisylate 5 mg/ Syringe 5 ml @ 5 mls/min Q6H PRN IV 05/14/17 05:30 06/13/17 05:29 Potassium Chloride/Sodium Chloride 1,000 ml @ 150 mls/hr Q6H40M IV 05/14/17 05:30 06/12/17 05:29 05/16/17 15:15 150 MLS/HR Albuterol/ Ipratropium (Duoneb) 3 ml Q2H PRN INH 05/14/17 05:30 06/13/17 05:29 Ampicillin Sodium/ Sulbactam Sodium (Consult) 1 ea UD PRN N/A 05/14/17 09:00 06/13/17 08:59 Amlodipine Besylate (Norvasc Tab) 2.5 mg QAM PO 05/15/17 09:00 06/14/17 08:59 05/16/17 08:48 2.5 MG Ampicillin Sodium/ Sulbactam Sodium 3000 mg/Sodium Chloride 108 ml @ 216 mls/hr Q12H IV 05/14/17 18:00 05/21/17 17:59 05/16/17 18:01 216 MLS/HR Oseltamivir Phosphate (Tamiflu Susp) 30 mg DAILY PO 05/14/17 14:45 05/18/17 09:01 05/16/17 08:11 30 MG Miscellaneous Information 1 UD PRN N/A 05/14/17 14:45 06/13/17 14:44 Heparin Sodium (Porcine) (Heparin Sq 5000 Unit/0.5ml) 5,000 unit Q12 SQ 05/15/17 21:00 06/14/17 20:59
[2017-05-16 22:51] VITALS: BP 167/92; PULSE 70; TEMP 37.1; O2SAT 97
[2017-05-17] MEDS: NSS + 20MEQ KCL 1000ML 1,000 ML IV SCH ×3 (04:58→17:46)
[2017-05-17] MEDS: AMPICILLIN/SULBACTAM SOD INJ 3,000 MG in SODIUM CHLORIDE 0.9% 100ML 100 ML IV SCH ×2 (06:09→17:46)
[2017-05-17 07:17] VITALS: BP 173/96; PULSE 59; TEMP 37.4; O2SAT 94
[2017-05-17 08:14] LABS: HEMATOCRIT 34.9 % (42-52); HEMOGLOBIN 11.8 g/dL (14.0-18.0); MEAN CELL VOLUME 87.9 fL (80-100); MEAN CORPUSCULAR HEMOGLOBIN 29.7 pg (25-34); MEAN CORPUSCULAR HGB CONC 33.8 g/dl (32-36); MEAN PLATELET VOLUME 11.3 fL (7.4-10.4); PLATELET COUNT 150 K/uL (130-400); RED CELL DISTRIBUTION WIDTH CV 13.3 % (11.5-14.5); RED CELL DISTRIBUTION WIDTH SD 43.2 fL (36.4-46.3); WHITE BLOOD COUNT 6.82 K/uL (4.8-10.8)
[2017-05-17] MEDS: AMLODIPINE BESYLATE 5 MG TAB PO SCH (08:37)
--- NOTE | 2017-05-17 08:38 | Clinical Documentation Query ---
CLINICAL DOCUMENTATION QUERY Dr. PATEL, In your clinical opinion is this patient being managed for: ( x ) Acute kidney failure with (POSSIBLE) ATN ( ) Not Agree ( ) Other explanation of clinical findings (Please Explain) ( ) Unable to determine (Please Define) ( ) Need to Discuss The medical record reflects the following clinical findings, treatment, and risk factors. Clinical Indicators: 66 yo male presenting with influenza A and pneumonia. BUN 62, Cr 4.74 which eventually improved to Cr 3.56. UA with epithel cells >30, 1-5 granular casts Treatment: IV fluids (8 L thus far), daily PRP's, renal US Risk Factors:influenza, pneumonia, dehydration, HTN Please clarify and document your clinical opinion in the progress notes and discharge summary. Terms such as "probable", "suspected", "likely", "questionable", "possible", or "still to be ruled out" are acceptable. IF IN AGREEMENT, YOU MUST DOCUMENT ABOVE DIAGNOSTIC STATEMENT IN DAILY PROGRESS NOTES AND DISCHARGE SUMMARY. This document is not part of the patient's record. Thank You, Shelbi Olivas, GINO [phone]
[2017-05-17 08:41] LABS: BASO % 0.3 %; BASO ABS # 0.02 K/uL (0-0.2); EOS % 1.9 %; EOS ABS # 0.13 K/uL (0-0.5); IG# 0.22 K/uL (0.00-0.02); LYMPH % 27.6 %; LYMPH ABS # 1.88 K/uL (1.2-3.4); MONO % 20.5 %; NEUT % 46.5 %; NEUT ABS # 3.17 K/uL (1.4-6.5)
[2017-05-17 08:47] LABS: CALCIUM 8.1 mg/dl (8.5-10.1); CREATININE 3.4 mg/dl (0.60-1.40); POTASSIUM 4.7 mmol/L (3.5-5.1)
[2017-05-17] MEDS: HEPARIN SOD 5000 UNIT/0.5 ML CARP SQ SCH ×2 (08:56→20:51)
[2017-05-17] MEDS: OSELTAMIVIR PHOSPHATE SUSP 30 MG/5 ML UDP PO SCH (10:12)
[2017-05-17] MEDS: ACETAMINOPHEN 325 MG TAB PO PRN ×2 (13:53→20:50)
[2017-05-17 15:13] VITALS: BP 159/90; PULSE 62; TEMP 36.8; O2SAT 97
[2017-05-17] MEDS: TRAMADOL HCL 50 MG TAB PO PRN (16:26)
--- NOTE | 2017-05-17 20:39 | Progress Note ---
Medicine Progress Note Date & Time of Visit: May 17, 2017 at ~ 16:00 . Subjective CC: Follow-up visit for influenza, pneumonia, and VAN. HPI: Better. No fever. Cough improved; no SOB. No chest pain. No diarrhea. No nausea, vomiting. Urine output good; no dysuria. Ambulating. ROS: as noted above in HPI . Objective Last 8 Hrs Date Time Temp Pulse Resp B/P (MAP) Pulse Ox O2 Delivery O2 Flow Rate FiO2 05/17/17 16:00 Room Air 05/17/17 15:13 36.8 62 18 159/90 (113) 97 Room Air Physical Exam: General- lying in bed; no distress Eyes- anicteric Lungs- rales right chest; no respiratory distress Cardiovascular- RRR; no gallop; no JVD; no pretibial edema Abdomen- slightly distended, + bowel sounds, soft, nontender Extremities- no cyanosis; no calf tenderness Neuro- alert, oriented Skin- warm & dry . Laboratory Results: Last 24 Hours Test 05/17/17 07:31 White Blood Count 6.82 K/uL Red Blood Count 3.97 M/uL Hemoglobin 11.8 g/dL Hematocrit 34.9 % Mean Corpuscular Volume 87.9 fL Mean Corpuscular Hemoglobin 29.7 pg Mean Corpuscular Hemoglobin Concent 33.8 g/dl Platelet Count 150 K/uL Mean Platelet Volume 11.3 fL Neutrophils (%) (Auto) 46.5 % Lymphocytes (%) (Auto) 27.6 % Monocytes (%) (Auto) 20.5 % Eosinophils (%) (Auto) 1.9 % Basophils (%) (Auto) 0.3 % Neutrophils # (Auto) 3.17 K/uL Lymphocytes # (Auto) 1.88 K/uL Monocytes # (Auto) 1.40 K/uL Eosinophils # (Auto) 0.13 K/uL Basophils # (Auto) 0.02 K/uL RDW Standard Deviation 43.2 fL RDW Coefficient of Variation 13.3 % Immature Granulocyte % (Auto) 3.2 % Immature Granulocyte # (Auto) 0.22 K/uL Sodium Level 141 mmol/L Potassium Level 4.7 mmol/L Chloride Level 111 mmol/L Carbon Dioxide Level 22 mmol/L Anion Gap 9.0 mmol/L Blood Urea Nitrogen 36 mg/dl Creatinine 3.40 mg/dl Est Creatinine Clear Calc Drug Dose 25.8 ml/min Estimated GFR () 20.6 Estimated GFR (Non- 17.8 BUN/Creatinine Ratio 10.6 Random Glucose 81 mg/dl Calcium Level 8.1 mg/dl Assessment & Plan INFLUENZA A Confirmed by PCR. Oseltamivir with reduced dose for VAN. PNEUMONIA Chest x-ray demonstrated infiltrates in right mid and lower lung. Has influenza A as discussed above. May have superimposed pneumonia, possibly aspiration. Continue Rx with IV ampicillin / sulbactam. ACUTE KIDNEY INJURY Serum creatinine 4.74 at time of admission. No history renal disease. Renal US negative for obstruction or apparent CKD. Patient reports poor PO intake because of illness. Serum creatinine this today = 3.40. Continue IV fluids. Follow. HYPOKALEMIA Serum K 3.3, 3.2. IV replacement. K today = 4.7. Follow. HYPERTENSION Continue amlodipine. ANEMIA Hgb 13.1 --> --> 11.8. Baseline unknown. Follow. THROMBOCYTOPENIA Plts 129,000 --> --> 150,000. Follow. DIARRHEA Resolved. VTE PROPHYLAXIS Received 1 dose of SQ heparin, but held due to thrombocytopenia. SCD's. Plt count improved; resumed SQ heparin. Ambulate. DISPOSITION Expected discharge to home. Follow-up with PCP. . Current Inpatient Medications: Current Inpatient Medications Medications (Trade) Dose Ordered Sig/Mechelle Route Start Time Stop Time Status Last Admin Dose Admin Acetaminophen (Tylenol Tab) 650 mg Q4H PRN PO 05/14/17 05:30 06/13/17 05:29 05/17/17 13:53 650 MG Hydromorphone HCl (Dilaudid Inj) 0.5 mg Q3H PRN IV 05/14/17 05:30 05/28/17 05:29 Tramadol HCl (Ultram Tab) 25 mg Q6H PRN PO 05/14/17 05:30 06/13/17 05:29 05/17/17 16:26 25 MG Prochlorperazine Edisylate 5 mg/ Syringe 5 ml @ 5 mls/min Q6H PRN IV 05/14/17 05:30 06/13/17 05:29 Potassium Chloride/Sodium Chloride 1,000 ml @ 150 mls/hr Q6H40M IV 05/14/17 05:30 06/12/17 05:29 05/17/17 17:46 150 MLS/HR Albuterol/ Ipratropium (Duoneb) 3 ml Q2H PRN INH 05/14/17 05:30 06/13/17 05:29 Ampicillin Sodium/ Sulbactam Sodium (Consult) 1 ea UD PRN N/A 05/14/17 09:00 06/13/17 08:59 Amlodipine Besylate (Norvasc Tab) 2.5 mg QAM PO 05/15/17 09:00 06/14/17 08:59 05/17/17 08:37 2.5 MG Ampicillin Sodium/ Sulbactam Sodium 3000 mg/Sodium Chloride 108 ml @ 216 mls/hr Q12H IV 05/14/17 18:00 05/21/17 17:59 05/17/17 17:46 216 MLS/HR Oseltamivir Phosphate (Tamiflu Susp) 30 mg DAILY PO 05/14/17 14:45 05/18/17 09:01 05/17/17 10:12 30 MG Miscellaneous Information 1 ea UD PRN N/A 05/14/17 14:45 06/13/17 14:44 Heparin Sodium (Porcine) (Heparin Sq 5000 Unit/0.5ml) 5,000 unit Q12 SQ 05/15/17 21:00 06/14/17 20:59
[2017-05-17 20:55] VITALS: BP 173/90; PULSE 62
[2017-05-17 23:50] VITALS: BP 158/97; PULSE 61; TEMP 37; O2SAT 94
[2017-05-18] MEDS: NSS + 20MEQ KCL 1000ML 1,000 ML IV SCH ×4 (00:54→22:10)
[2017-05-18] MEDS: TRAMADOL HCL 50 MG TAB PO PRN (01:00)
[2017-05-18] MEDS: AMPICILLIN/SULBACTAM SOD INJ 3,000 MG in SODIUM CHLORIDE 0.9% 100ML 100 ML IV SCH ×2 (05:38→17:51)
[2017-05-18 07:26] LABS: HEMATOCRIT 32.8 % (42-52); HEMOGLOBIN 11.2 g/dL (14.0-18.0); MEAN CELL VOLUME 87.7 fL (80-100); MEAN CORPUSCULAR HEMOGLOBIN 29.9 pg (25-34); MEAN CORPUSCULAR HGB CONC 34.1 g/dl (32-36); MEAN PLATELET VOLUME 10.6 fL (7.4-10.4); PLATELET COUNT 180 K/uL (130-400); RED CELL DISTRIBUTION WIDTH CV 13.3 % (11.5-14.5); RED CELL DISTRIBUTION WIDTH SD 43.1 fL (36.4-46.3); WHITE BLOOD COUNT 6.93 K/uL (4.8-10.8)
[2017-05-18 07:59] VITALS: BP 182/104; PULSE 61; TEMP 36.5; O2SAT 96
[2017-05-18 07:59] LABS: BASO % 0.3 %; BASO ABS # 0.02 K/uL (0-0.2); EOS % 4.2 %; EOS ABS # 0.29 K/uL (0-0.5); IG# 0.35 K/uL (0.00-0.02); LYMPH % 28.9 %; MONO % 15.3 %; MONO ABS # 1.06 K/uL (0.11-0.59); NEUT % 46.2 %; NEUT ABS # 3.21 K/uL (1.4-6.5)
[2017-05-18 08:00] LABS: CREATININE 3.19 mg/dl (0.60-1.40); POTASSIUM 4.4 mmol/L (3.5-5.1)
[2017-05-18] MEDS: HEPARIN SOD 5000 UNIT/0.5 ML CARP SQ SCH ×2 (08:30→21:00)
[2017-05-18] MEDS: OSELTAMIVIR PHOSPHATE SUSP 30 MG/5 ML UDP PO SCH (09:00)
[2017-05-18] MEDS: AMLODIPINE BESYLATE 5 MG TAB PO SCH (09:00)
[2017-05-18 10:29] VITALS: BP_SYST 175; BP_SYST 180; BP_DIAS 91; BP_DIAS 96; PULSE 58
--- NOTE | 2017-05-18 12:41 | DIAGNOSTIC IMAGING REPORT ---
CHEST 2 VIEWS ROUTINE CLINICAL HISTORY: f/u influenza and pneumonia pneumonia COMPARISON STUDY: 05/14/2017 FINDINGS: Similar distribution of a parenchymal infiltrate of the right mid to right lower lung region. Right upper lung appears clear as does the left hemithorax. No significant cardiac enlargement. Slight increase in density of the mid lung component of the infiltrative process. IMPRESSION: 1. Unchanged distribution and extent of a right mid to lower lung infiltrative process. 2. Subtle increase in density and/or early consolidative change right midlung region The above report was generated using voice recognition software. It may contain grammatical, syntax or spelling errors. Electronically signed by: Master Richardson M.D. 05/18/2017 12:40 PM Dictated Date/Time: 05/18/2017 12:39 PM
--- NOTE | 2017-05-18 12:43 | DIAGNOSTIC IMAGING REPORT ---
ABDOMEN 2 VIEWS CLINICAL HISTORY: abdominal distention / discomfort pain COMPARISON STUDY: No previous studies for comparison. FINDINGS: The soft tissues, psoas shadows, renal outlines and intestinal gas pattern appear normal. There is no evidence for bowel obstruction. There is no evidence for free intraperitoneal air. No abnormal abdominal calcifications are seen. IMPRESSION: Normal study. The above report was generated using voice recognition software. It may contain grammatical, syntax or spelling errors. Electronically signed by: Master Richardson M.D. 05/18/2017 12:42 PM Dictated Date/Time: 05/18/2017 12:41 PM
[2017-05-18 14:55] VITALS: BP 192/93; PULSE 63; TEMP 36.8; O2SAT 94
[2017-05-18 16:00] VITALS: O2SAT 94
--- NOTE | 2017-05-18 20:35 | Progress Note ---
Medicine Progress Note Date & Time of Visit: May 18, 2017 at 19:00 . Subjective CC: Follow-up visit for influenza, pneumonia, and VAN. HPI: No fever. Cough improved; no SOB. No chest pain. Has some abdominal bloating and discomfort. No diarrhea. No nausea, vomiting. Urine output good. Ambulating. ROS: as noted above in HPI . Objective Last 8 Hrs Date Time Temp Pulse Resp B/P (MAP) Pulse Ox O2 Delivery O2 Flow Rate FiO2 05/18/17 16:00 94 Room Air 05/18/17 14:55 36.8 63 18 192/93 (126) 94 Room Air Physical Exam: General- lying in bed; no distress Eyes- anicteric Lungs- rales right chest; no respiratory distress Cardiovascular- RRR; no gallop; no JVD; no pretibial edema Abdomen- slightly distended, + bowel sounds, soft, nontender Extremities- no cyanosis; no calf tenderness Neuro- alert, oriented Skin- warm & dry . Laboratory Results: Last 24 Hours Test 05/18/17 07:02 White Blood Count 6.93 K/uL Red Blood Count 3.74 M/uL Hemoglobin 11.2 g/dL Hematocrit 32.8 % Mean Corpuscular Volume 87.7 fL Mean Corpuscular Hemoglobin 29.9 pg Mean Corpuscular Hemoglobin Concent 34.1 g/dl Platelet Count 180 K/uL Mean Platelet Volume 10.6 fL Neutrophils (%) (Auto) 46.2 % Lymphocytes (%) (Auto) 28.9 % Monocytes (%) (Auto) 15.3 % Eosinophils (%) (Auto) 4.2 % Basophils (%) (Auto) 0.3 % Neutrophils # (Auto) 3.21 K/uL Lymphocytes # (Auto) 2.00 K/uL Monocytes # (Auto) 1.06 K/uL Eosinophils # (Auto) 0.29 K/uL Basophils # (Auto) 0.02 K/uL RDW Standard Deviation 43.1 fL RDW Coefficient of Variation 13.3 % Immature Granulocyte % (Auto) 5.1 % Immature Granulocyte # (Auto) 0.35 K/uL Large Platelets 2+ Giant Platelets 1+ Acanthocytes 1+ Sodium Level 142 mmol/L Potassium Level 4.4 mmol/L Chloride Level 112 mmol/L Carbon Dioxide Level 22 mmol/L Anion Gap 8.0 mmol/L Blood Urea Nitrogen 29 mg/dl Creatinine 3.19 mg/dl Est Creatinine Clear Calc Drug Dose 27.5 ml/min Estimated GFR () 22.3 Estimated GFR (Non- 19.2 BUN/Creatinine Ratio 8.9 Random Glucose 82 mg/dl Calcium Level 8.0 mg/dl Assessment & Plan INFLUENZA A Confirmed by PCR. Continue oseltamivir with reduced dose for VAN. PNEUMONIA Chest x-ray demonstrated infiltrates in right mid and lower lung. Has influenza A as discussed above. May have superimposed pneumonia, possibly aspiration. Follow-up chest x-ray today essentially same. Continue Rx with IV ampicillin / sulbactam; transition to oral therapy tomorrow if GI symptoms allow. ACUTE KIDNEY INJURY Serum creatinine 4.74 at time of admission. No history renal disease. Renal US negative for obstruction or apparent CKD. Patient reports poor PO intake because of illness. Serum creatinine this today = 3.19. Continue IV fluids. Follow. HYPOKALEMIA Serum K 3.3, 3.2. IV replacement. K today = 4.4. Follow. HYPERTENSION Continue amlodipine. ANEMIA Hgb 13.1 --> --> 11.2. Baseline unknown. Follow. THROMBOCYTOPENIA Plts 129,000 --> --> 180,000. Thrombocytopenia probably secondary to influenza. Follow. DIARRHEA Resolved. VTE PROPHYLAXIS Received 1 dose of SQ heparin, but held due to thrombocytopenia. SCD's. Plt count improved; resumed SQ heparin. Ambulate. DISPOSITION Expected discharge to home. Follow-up with PCP. . Current Inpatient Medications: Current Inpatient Medications Medications (Trade) Dose Ordered Sig/Mechelle Route Start Time Stop Time Status Last Admin Dose Admin Acetaminophen (Tylenol Tab) 650 mg Q4H PRN PO 05/14/17 05:30 06/13/17 05:29 05/17/17 20:50 650 MG Hydromorphone HCl (Dilaudid Inj) 0.5 mg Q3H PRN IV 05/14/17 05:30 05/28/17 05:29 Tramadol HCl (Ultram Tab) 25 mg Q6H PRN PO 05/14/17 05:30 06/13/17 05:29 05/18/17 01:00 25 MG Prochlorperazine Edisylate 5 mg/ Syringe 5 ml @ 5 mls/min Q6H PRN IV 05/14/17 05:30 06/13/17 05:29 Potassium Chloride/Sodium Chloride 1,000 ml @ 150 mls/hr Q6H40M IV 05/14/17 05:30 06/12/17 05:29 05/18/17 14:36 150 MLS/HR Albuterol/ Ipratropium (Duoneb) 3 ml Q2H PRN INH 05/14/17 05:30 06/13/17 05:29 Ampicillin Sodium/ Sulbactam Sodium (Consult) 1 ea UD PRN N/A 05/14/17 09:00 06/13/17 08:59 Amlodipine Besylate (Norvasc Tab) 2.5 mg QAM PO 05/15/17 09:00 06/14/17 08:59 05/18/17 09:00 2.5 MG Ampicillin Sodium/ Sulbactam Sodium 3000 mg/Sodium Chloride 108 ml @ 216 mls/hr Q12H IV 05/14/17 18:00 05/21/17 17:59 05/18/17 17:51 216 MLS/HR Heparin Sodium (Porcine) (Heparin Sq 5000 Unit/0.5ml) 5,000 unit Q12 SQ 05/15/17 21:00 06/14/17 20:59
[2017-05-19 00:29] VITALS: BP 172/87; PULSE 54; TEMP 37.2; O2SAT 94
[2017-05-19] MEDS: NSS + 20MEQ KCL 1000ML 1,000 ML IV SCH ×3 (04:55→18:30)
[2017-05-19] MEDS: ACETAMINOPHEN 325 MG TAB PO PRN (05:09)
[2017-05-19] MEDS: AMPICILLIN/SULBACTAM SOD INJ 3,000 MG in SODIUM CHLORIDE 0.9% 100ML 100 ML IV SCH (05:50)
[2017-05-19 07:11] VITALS: BP 171/88; PULSE 66; TEMP 37; O2SAT 97
[2017-05-19 07:43] LABS: HEMATOCRIT 33.9 % (42-52); HEMOGLOBIN 11.4 g/dL (14.0-18.0); MEAN CELL VOLUME 87.4 fL (80-100); MEAN CORPUSCULAR HEMOGLOBIN 29.4 pg (25-34); MEAN CORPUSCULAR HGB CONC 33.6 g/dl (32-36); MEAN PLATELET VOLUME 10.8 fL (7.4-10.4); PLATELET COUNT 233 K/uL (130-400); RED CELL DISTRIBUTION WIDTH CV 13.1 % (11.5-14.5); RED CELL DISTRIBUTION WIDTH SD 42.1 fL (36.4-46.3); WHITE BLOOD COUNT 7.74 K/uL (4.8-10.8)
[2017-05-19 08:10] LABS: BASO % 0.3 %; BASO ABS # 0.02 K/uL (0-0.2); EOS % 3.2 %; EOS ABS # 0.25 K/uL (0-0.5); IG# 0.51 K/uL (0.00-0.02); LYMPH % 22.9 %; LYMPH ABS # 1.77 K/uL (1.2-3.4); MONO % 14.6 %; MONO ABS # 1.13 K/uL (0.11-0.59); NEUT % 52.4 %; NEUT ABS # 4.06 K/uL (1.4-6.5)
[2017-05-19 08:13] LABS: CALCIUM 7.9 mg/dl (8.5-10.1); CREATININE 2.99 mg/dl (0.60-1.40); POTASSIUM 4.4 mmol/L (3.5-5.1)
[2017-05-19] MEDS: HEPARIN SOD 5000 UNIT/0.5 ML CARP SQ SCH ×2 (08:28→20:31)
[2017-05-19] MEDS: AMLODIPINE BESYLATE 5 MG TAB PO SCH (08:28)
[2017-05-19 15:52] VITALS: BP 162/92; PULSE 75; TEMP 37.1; O2SAT 94
[2017-05-19] MEDS ORDERED: AMLODIPINE BESYLATE 5 MG TAB PO ONE (16:00)
[2017-05-19] MEDS: AMOXICILLIN/CLAVULANATE TAB 875 MG TAB PO SCH (17:49)
--- NOTE | 2017-05-19 21:16 | Progress Note ---
Medicine Progress Note Date & Time of Visit: May 19, 2017 at 15:50 . Subjective CC: Follow-up visit for influenza, pneumonia, and VAN. HPI: No fever. Cough improved; no SOB. No chest pain. Episode of nausea and vomiting during the night; able to eat breakfast and lunch without difficulty. Still has some abdominal bloating. No diarrhea. Urine output good. Ambulating. ROS: as noted above in HPI . Objective Last 8 Hrs Date Time Temp Pulse Resp B/P (MAP) Pulse Ox O2 Delivery O2 Flow Rate FiO2 05/19/17 16:30 Room Air 05/19/17 15:52 37.1 75 18 162/92 (115) 94 Room Air Physical Exam: General- lying in bed; no distress Eyes- anicteric Lungs- rales right chest; no respiratory distress Cardiovascular- RRR; no gallop; no JVD; no pretibial edema Abdomen- slightly distended, + bowel sounds, soft, nontender Extremities- no cyanosis; no calf tenderness Neuro- alert, oriented Skin- warm & dry . Laboratory Results: Last 24 Hours Test 05/19/17 07:09 White Blood Count 7.74 K/uL Red Blood Count 3.88 M/uL Hemoglobin 11.4 g/dL Hematocrit 33.9 % Mean Corpuscular Volume 87.4 fL Mean Corpuscular Hemoglobin 29.4 pg Mean Corpuscular Hemoglobin Concent 33.6 g/dl Platelet Count 233 K/uL Mean Platelet Volume 10.8 fL Neutrophils (%) (Auto) 52.4 % Lymphocytes (%) (Auto) 22.9 % Monocytes (%) (Auto) 14.6 % Eosinophils (%) (Auto) 3.2 % Basophils (%) (Auto) 0.3 % Neutrophils # (Auto) 4.06 K/uL Lymphocytes # (Auto) 1.77 K/uL Monocytes # (Auto) 1.13 K/uL Eosinophils # (Auto) 0.25 K/uL Basophils # (Auto) 0.02 K/uL RDW Standard Deviation 42.1 fL RDW Coefficient of Variation 13.1 % Immature Granulocyte % (Auto) 6.6 % Immature Granulocyte # (Auto) 0.51 K/uL Toxic Granulation 1+ Large Platelets 1+ Sodium Level 141 mmol/L Potassium Level 4.4 mmol/L Chloride Level 111 mmol/L Carbon Dioxide Level 22 mmol/L Anion Gap 8.0 mmol/L Blood Urea Nitrogen 23 mg/dl Creatinine 2.99 mg/dl Est Creatinine Clear Calc Drug Dose 29.3 ml/min Estimated GFR () 24.1 Estimated GFR (Non- 20.8 BUN/Creatinine Ratio 7.6 Random Glucose 80 mg/dl Calcium Level 7.9 mg/dl Assessment & Plan INFLUENZA A Confirmed by PCR. Continue oseltamivir x 5 days with reduced dosing for VAN. PNEUMONIA Chest x-ray demonstrated infiltrates in right mid and lower lung. Has influenza A as discussed above. May have superimposed pneumonia, possibly aspiration. Received IV ampicillin / sulbactam; transition to oral therapy with amoxicillin / clavulanic acid. ACUTE KIDNEY INJURY Serum creatinine 4.74 at time of admission. No history renal disease. Renal US negative for obstruction or apparent CKD. Patient reports poor PO intake because of illness. UA showed granular casts. Suspect ATN / prerenal azotemia. Serum creatinine today = 2.99.. Continue IV fluids. Follow. HYPOKALEMIA Serum K 3.3, 3.2. IV replacement. K today = 4.4. Follow. HYPERTENSION BP's still elevated. Titrate amlodipine. ANEMIA Hgb 13.1 --> --> 11.4. Baseline unknown. Follow. THROMBOCYTOPENIA Plts 129,000 --> --> 233,000. Thrombocytopenia probably secondary to influenza. Follow. DIARRHEA Resolved. VTE PROPHYLAXIS Received 1 dose of SQ heparin, but held due to thrombocytopenia. SCD's. Plt count improved; resumed SQ heparin. Ambulate. DISPOSITION Expected discharge to home. Follow-up with PCP. . Current Inpatient Medications: Current Inpatient Medications Medications (Trade) Dose Ordered Sig/Mechelle Route Start Time Stop Time Status Last Admin Dose Admin Acetaminophen (Tylenol Tab) 650 mg Q4H PRN PO 05/14/17 05:30 06/13/17 05:29 05/19/17 05:09 650 MG Hydromorphone HCl (Dilaudid Inj) 0.5 mg Q3H PRN IV 05/14/17 05:30 05/28/17 05:29 Tramadol HCl (Ultram Tab) 25 mg Q6H PRN PO 05/14/17 05:30 06/13/17 05:29 05/18/17 01:00 25 MG Prochlorperazine Edisylate 5 mg/ Syringe 5 ml @ 5 mls/min Q6H PRN IV 05/14/17 05:30 06/13/17 05:29 Potassium Chloride/Sodium Chloride 1,000 ml @ 150 mls/hr Q6H40M IV 05/14/17 05:30 06/12/17 05:29 05/19/17 18:30 150 MLS/HR Albuterol/ Ipratropium (Duoneb) 3 ml Q2H PRN INH 05/14/17 05:30 06/13/17 05:29 Heparin Sodium (Porcine) (Heparin Sq 5000 Unit/0.5ml) 5,000 unit Q12 SQ 05/15/17 21:00 06/14/17 20:59 Amoxicillin/ Clavulanate Potassium (Augmentin Tab) 875 mg BIDM PO 05/19/17 18:00 05/21/17 23:59 05/19/17 17:49 875 MG Amlodipine Besylate (Norvasc Tab) 5 mg QAM PO 05/20/17 09:00 06/19/17 08:59
[2017-05-19] MEDS: TRAMADOL HCL 50 MG TAB PO PRN (22:06)
[2017-05-19 22:35] VITALS: BP 183/98; PULSE 61; TEMP 37.3; O2SAT 96
[2017-05-20 00:30] VITALS: BP 143/87; PULSE 71
[2017-05-20] MEDS: NSS + 20MEQ KCL 1000ML 1,000 ML IV SCH ×2 (00:44→08:36)
[2017-05-20 07:29] VITALS: BP 168/89; PULSE 59; TEMP 36.9; O2SAT 97
[2017-05-20 07:40] LABS: HEMATOCRIT 35.5 % (42-52); MEAN CELL VOLUME 87.9 fL (80-100); MEAN CORPUSCULAR HEMOGLOBIN 29.7 pg (25-34); MEAN CORPUSCULAR HGB CONC 33.8 g/dl (32-36); MEAN PLATELET VOLUME 10.8 fL (7.4-10.4); PLATELET COUNT 261 K/uL (130-400); RED CELL DISTRIBUTION WIDTH CV 13.1 % (11.5-14.5); RED CELL DISTRIBUTION WIDTH SD 42.5 fL (36.4-46.3); WHITE BLOOD COUNT 8.73 K/uL (4.8-10.8)
[2017-05-20] MEDS: AMOXICILLIN/CLAVULANATE TAB 875 MG TAB PO SCH (07:56)
[2017-05-20] MEDS: ACETAMINOPHEN 325 MG TAB PO PRN (07:57)
[2017-05-20 08:00] LABS: BASO % 0.2 %; BASO ABS # 0.02 K/uL (0-0.2); EOS % 2.7 %; EOS ABS # 0.24 K/uL (0-0.5); IG# 0.59 K/uL (0.00-0.02); LYMPH % 22.2 %; LYMPH ABS # 1.94 K/uL (1.2-3.4); MONO % 8.8 %; MONO ABS # 0.77 K/uL (0.11-0.59); NEUT % 59.3 %; NEUT ABS # 5.17 K/uL (1.4-6.5)
[2017-05-20 08:10] LABS: CALCIUM 8.2 mg/dl (8.5-10.1); CREATININE 2.97 mg/dl (0.60-1.40); POTASSIUM 4.6 mmol/L (3.5-5.1)
[2017-05-20] MEDS ORDERED: AMLODIPINE BESYLATE 5 MG TAB PO SCH (09:00)
[2017-05-20] MEDS: HEPARIN SOD 5000 UNIT/0.5 ML CARP SQ SCH (09:00)
[2017-05-20] MEDS ORDERED: ACET-1138 PO (13:02)
[2017-05-20] MEDS ORDERED: AMOX1TAB43 PO (13:02)
[2017-05-20] MEDS ORDERED: NRV5 PO (13:02)
[2017-05-20 13:15] VITALS: BP 168/89; PULSE 59; TEMP 36.9; O2SAT 97
--- NOTE | 2017-05-20 14:13 | Progress Note ---
Medicine Progress Note Date & Time of Visit: May 20, 2017 at 14:04. Subjective No fever. Cough much better. No dyspnea on exertion. No chest pain. Good urine output. 2 loose stools today. Ambulating. . Objective Last 8 Hrs Date Time Temp Pulse Resp B/P (MAP) Pulse Ox O2 Delivery O2 Flow Rate FiO2 05/20/17 13:15 36.9 59 18 97 Room Air 05/20/17 08:00 Room Air 05/20/17 07:29 36.9 59 18 168/89 (115) 97 Room Air Physical Exam: General- lying in bed; no distress Lungs- few rales right chest; no significant wheezing; no respiratory distress Cardiovascular- RRR; no gallop; no JVD; no pretibial edema Abdomen- slightly distended, + bowel sounds, soft, nontender Extremities- no cyanosis; no calf tenderness Neuro- alert, oriented Skin- warm & dry . Laboratory Results: Last 24 Hours Test 05/20/17 07:14 White Blood Count 8.73 K/uL Red Blood Count 4.04 M/uL Hemoglobin 12.0 g/dL Hematocrit 35.5 % Mean Corpuscular Volume 87.9 fL Mean Corpuscular Hemoglobin 29.7 pg Mean Corpuscular Hemoglobin Concent 33.8 g/dl Platelet Count 261 K/uL Mean Platelet Volume 10.8 fL Neutrophils (%) (Auto) 59.3 % Lymphocytes (%) (Auto) 22.2 % Monocytes (%) (Auto) 8.8 % Eosinophils (%) (Auto) 2.7 % Basophils (%) (Auto) 0.2 % Neutrophils # (Auto) 5.17 K/uL Lymphocytes # (Auto) 1.94 K/uL Monocytes # (Auto) 0.77 K/uL Eosinophils # (Auto) 0.24 K/uL Basophils # (Auto) 0.02 K/uL RDW Standard Deviation 42.5 fL RDW Coefficient of Variation 13.1 % Immature Granulocyte % (Auto) 6.8 % Immature Granulocyte # (Auto) 0.59 K/uL Toxic Granulation 1+ Sodium Level 141 mmol/L Potassium Level 4.6 mmol/L Chloride Level 111 mmol/L Carbon Dioxide Level 23 mmol/L Anion Gap 7.0 mmol/L Blood Urea Nitrogen 23 mg/dl Creatinine 2.97 mg/dl Est Creatinine Clear Calc Drug Dose 29.5 ml/min Estimated GFR () 24.3 Estimated GFR (Non- 20.9 BUN/Creatinine Ratio 7.7 Random Glucose 85 mg/dl Calcium Level 8.2 mg/dl Assessment & Plan INFLUENZA A Confirmed by PCR. Received oseltamivir x 5 days with reduced dosing for VAN. Cough essentially resolved. PNEUMONIA Chest x-ray demonstrated infiltrates in right mid and lower lung. Has influenza A as discussed above. May have superimposed pneumonia, possibly aspiration. Received IV ampicillin / sulbactam; transitioned to oral therapy with amoxicillin / clavulanic acid. Discharge on amoxicillin / clavulanic acid for 3 more days to complete 10 day course of therapy. Follow-up chest x-ray in 4-6 weeks recommended. Copy chest images for PCP. ACUTE KIDNEY INJURY Serum creatinine 4.74 at time of admission. No history renal disease. Renal US negative for obstruction or apparent CKD. Patient reports poor PO intake because of illness. UA showed granular casts. Suspect ATN / prerenal azotemia. NSAID use (naproxen) may have been contributing factor. Received IV fluids with improvement. Serum creatinine today = 2.97. Plenty of fluids. Avoid NSAID's. Follow. HYPOKALEMIA Serum K 3.3, 3.2. IV replacement. K today = 4.6. Follow. HYPERTENSION BP's as high as 192 systolic and 104 diastolic. Started on amlodipine. BP's last night 143/87, this morning 168/89. Discharge on amlodipine 5 mg daily. Follow and titrate Rx. ANEMIA Hgb 13.1 --> --> 12.0. Normocytic. Baseline unknown. Follow. May need further evaluation if anemia persists after recovery from current illness. THROMBOCYTOPENIA Plts 129,000 --> --> 261,000. Thrombocytopenia probably secondary to influenza. Follow. DIARRHEA Intermittent loose stools, but < 3 / day. Patient instructed to contact PCP for C diff testing if diarrhea worsens. VTE PROPHYLAXIS Initially received 1 dose of SQ heparin, but held due to thrombocytopenia. SCD's ordered. Plt count improved; SQ heparin reordered. Ambulating. DISPOSITION Discharge to home. Follow-up with PCP next week. Patient provided copies of DC summary, labs, radiology reports, and diagnostic images for his PCP. . Current Inpatient Medications: Current Inpatient Medications Medications (Trade) Dose Ordered Sig/Mechelle Route Start Time Stop Time Status Last Admin Dose Admin Acetaminophen (Tylenol Tab) 650 mg Q4H PRN PO 05/14/17 05:30 06/13/17 05:29 05/20/17 07:57 650 MG Hydromorphone HCl (Dilaudid Inj) 0.5 mg Q3H PRN IV 05/14/17 05:30 05/28/17 05:29 05/20/17 00:45 0.5 MG Tramadol HCl (Ultram Tab) 25 mg Q6H PRN PO 05/14/17 05:30 06/13/17 05:29 05/19/17 22:06 25 MG Prochlorperazine Edisylate 5 mg/ Syringe 5 ml @ 5 mls/min Q6H PRN IV 05/14/17 05:30 06/13/17 05:29 Potassium Chloride/Sodium Chloride 1,000 ml @ 150 mls/hr Q6H40M IV 05/14/17 05:30 06/12/17 05:29 05/20/17 08:36 150 MLS/HR Albuterol/ Ipratropium (Duoneb) 3 ml Q2H PRN INH 05/14/17 05:30 06/13/17 05:29 Heparin Sodium (Porcine) (Heparin Sq 5000 Unit/0.5ml) 5,000 unit Q12 SQ 05/15/17 21:00 06/14/17 20:59 Amoxicillin/ Clavulanate Potassium (Augmentin Tab) 875 mg BIDM PO 05/19/17 18:00 05/21/17 23:59 05/20/17 07:56 875 MG Amlodipine Besylate (Norvasc Tab) 5 mg QAM PO 05/20/17 09:00 06/19/17 08:59 05/20/17 07:56 5 MG
--- NOTE | 2017-05-20 14:20 | Discharge Instructions ---
Discharge Instructions Date of Service May 20, 2017. Admission Reason for Admission: cough, weakness . Discharge Discharge Diagnosis / Problem: influenza A, pneumonia, kidney problems, high blood pressure Discharge Goals Goal(s): Improve function, Improve disease control Activity Recommendations Activity Limitations: as noted below Lifting Limitations: gradually increase as tolerated . Instructions / Follow-Up Instructions / Follow-Up APPOINTMENTS: Please see your family doctor next week for recheck. Have them check your blood pressure and blood work (basic metabolic profile, complete blood count). You will be give copies of your records, labs, x-rays, kidney ultrasound, and CT scan of chest. Please share them with your family doctor when you see them next week. OTHER INSTRUCTIONS: You had "the flu" which was treated with Tamiflu for 5 days. You had pneumonia which is getting better. Take amoxicillin / clavulanic acid (Augmentin) twice a day with food until gone. Please ask your family doctor to order repeat chest x-ray in about 4 weeks to make certain that pneumonia clears up. Your kidney function was low, but getting better. Drink plenty of fluids. Do not use medicines like ibuprofen (Advil or Motrin) or naproxen (Aleve)- they can make kidney function worse. OK to use Tylenol as directed. Seek medical attention if you have: * temperature above 101 * chest pain or trouble breathing * abdominal pain, nausea, vomiting * diarrhea, dark stools or bloody stools * any unanswered questions or concerns Call 911 if symptoms are severe. Call if you have any questions or problems. My cell # is [phone]. You can also reach a [facility] hospitalist on duty at [facility] 24 hours a day by calling [phone]. Please take good care of yourself. Blair Quesada . Current Hospital Diet Patient's current hospital diet: AHA Diet (Heart Healthy) Discharge Diet Recommended Diet: AHA Diet (Heart Healthy) Pending Studies Studies pending at discharge: no Laboratory Results Hemoglobin A1c Test 05/14/17 04:24 Range/Units Estimated Average Glucose 126 mg/dl Hemoglobin A1c 6.0 H 4.5-5.6 % Medical Emergencies . Who to Call and When: Medical Emergencies: If at any time you feel your situation is an emergency, please call 911 immediately. . Non-Emergent Contact Non-Emergency issues call your: Primary Care Provider, Hospital Doctor . . "Provider Documentation" section prepared by Blair Quesada. . VTE Core Measure Inpt VTE Proph given/why not?: Unfractionated heparin SQ
--- NOTE | 2017-05-20 14:31 | Discharge Summary ---
Discharge Summary Date of Service May 20, 2017. Discharge Summary Admission Date: May 14, 2017 at 04:14 Discharge Date: May 20, 2017 Discharge Disposition: Home Principal Diagnosis: influenza A pneumonia RLL, possibly aspiration acute kidney injury . Secondary Diagnoses/Problems: Chronic Medical Problems: (1) Hypertension Status: Chronic . Procedures: IV meds IV fluids US kidneys CT chest . Pending Studies/Follow-Up: Please check basic metabolic profile and CBC in clinic. Please check repeat chest x-ray in about 4 weeks re: pneumonia. . 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 Five days ago he left [place] to deliver some goods to [place]. Was sick, weak, cough symptoms initially productive of clear sputum. Patient also had chills, body aches, nausea, vomiting, poor appetite. Cough later productive of yellow sputum, worsening, increasing shortness of breath. Sick contacts about 2 weeks ago. Patient taking 2 tablets [id number] Aleve daily, NyQuil since illness. Denies abdominal pain, black/bloody stools, diarrhea He had dropped off a shipment at [place] and was on his way back to [place]. He could not proceed any longer. At the Emergency Room, px received ceftriaxone and azithromycin for pneumonia. . Physical Exam (per Admitting): VITAL SIGNS: Blood pressure was noted to be 145/92, pulse rate 92, RR 18, temperature 36.8, sats 94 on room air. GENERAL: Noted to be slightly uncomfortable, no respiratory distress, pleasant. SKIN: Pallor. Warm. HEENT: Alopecia. Pale palpebral conjunctivae. No ptosis. Dry mucosa. Mask covering nose and mouth. Neck : Supple. No tenderness. CHEST: Clear to auscultation. No tenderness. HEART: Regular rate and rhythm. No murmur. ABDOMEN: Some distention, nontender. RECTAL: Intact sphincter, yellow stool, heme negative. EXTREMITIES: No edema. Nontender. No gross deformities. NEUROLOGIC: Coherent. No gross focality. . Hospital Course INFLUENZA A Confirmed by PCR. Received oseltamivir x 5 days with reduced dosing for VAN. Cough essentially resolved. PNEUMONIA Chest x-ray demonstrated infiltrates in right mid and lower lung. Has influenza A as discussed above. May have superimposed pneumonia, possibly aspiration. Received IV ampicillin / sulbactam; transitioned to oral therapy with amoxicillin / clavulanic acid. Discharge on amoxicillin / clavulanic acid for 3 more days to complete 10 day course of therapy. Follow-up chest x-ray in 4-6 weeks recommended. Copy chest images for PCP. ACUTE KIDNEY INJURY Serum creatinine 4.74 at time of admission. No history renal disease. Renal US negative for obstruction or apparent CKD. Patient reports poor PO intake because of illness. UA showed granular casts. Suspect ATN / prerenal azotemia. NSAID use (naproxen) may have been contributing factor. Received IV fluids with improvement. Serum creatinine today = 2.97. Plenty of fluids. Avoid NSAID's. Follow. HYPOKALEMIA Serum K 3.3, 3.2. IV replacement. K today = 4.6. Follow. HYPERTENSION BP's as high as 192 systolic and 104 diastolic. Started on amlodipine. BP's last night 143/87, this morning 168/89. Discharge on amlodipine 5 mg daily. Follow and titrate Rx. ANEMIA Hgb 13.1 --> --> 12.0. Normocytic. Baseline unknown. Follow. May need further evaluation if anemia persists after recovery from current illness. THROMBOCYTOPENIA Plts 129,000 --> --> 261,000. Thrombocytopenia probably secondary to influenza. Follow. DIARRHEA Intermittent loose stools, but < 3 / day. Patient instructed to contact PCP for C diff testing if diarrhea worsens. VTE PROPHYLAXIS Initially received 1 dose of SQ heparin, but held due to thrombocytopenia. SCD's ordered. Plt count improved; SQ heparin reordered. Ambulating. DISPOSITION Discharge to home. Follow-up with PCP next week. Patient provided copies of DC summary, labs, radiology reports, and diagnostic images for his PCP. . Total time spent on discharge = 45 min. This includes examination of the patient, discharge planning, medication reconciliation, and communication with other providers. . Discharge Instructions Date of Service May 20, 2017. Admission Reason for Admission: cough, weakness . Discharge Discharge Diagnosis / Problem: influenza A, pneumonia, kidney problems, high blood pressure Discharge Goals Goal(s): Improve function, Improve disease control Activity Recommendations Activity Limitations: as noted below Lifting Limitations: gradually increase as tolerated . Instructions / Follow-Up Instructions / Follow-Up APPOINTMENTS: Please see your family doctor next week for recheck. Have them check your blood pressure and blood work (basic metabolic profile, complete blood count). You will be give copies of your records, labs, x-rays, kidney ultrasound, and CT scan of chest. Please share them with your family doctor when you see them next week. OTHER INSTRUCTIONS: You had "the flu" which was treated with Tamiflu for 5 days. You had pneumonia which is getting better. Take amoxicillin / clavulanic acid (Augmentin) twice a day with food until gone. Please ask your family doctor to order repeat chest x-ray in about 4 weeks to make certain that pneumonia clears up. Your kidney function was low, but getting better. Drink plenty of fluids. Do not use medicines like ibuprofen (Advil or Motrin) or naproxen (Aleve)- they can make kidney function worse. OK to use Tylenol as directed. Seek medical attention if you have: * temperature above 101 * chest pain or trouble breathing * abdominal pain, nausea, vomiting * diarrhea, dark stools or bloody stools * any unanswered questions or concerns Call 911 if symptoms are severe. Call if you have any questions or problems. My cell # is [phone]. You can also reach a [facility] hospitalist on duty at [facility] 24 hours a day by calling [phone]. Please take good care of yourself. Blair Quesada . Current Hospital Diet Patient's current hospital diet: AHA Diet (Heart Healthy) Discharge Diet Recommended Diet: AHA Diet (Heart Healthy) Pending Studies Studies pending at discharge: no Laboratory Results Hemoglobin A1c Test 05/14/17 04:24 Range/Units Estimated Average Glucose 126 mg/dl Hemoglobin A1c 6.0 H 4.5-5.6 % Medical Emergencies . Who to Call and When: Medical Emergencies: If at any time you feel your situation is an emergency, please call 911 immediately. . Non-Emergent Contact Non-Emergency issues call your: Primary Care Provider, Hospital Doctor . . "Provider Documentation" section prepared by Blair Quesada. . VTE Core Measure Inpt VTE Proph given/why not?: Unfractionated heparin SQ .
== END 2017-05-20 15:12 | disposition home or self-care (01) | DRG 177 ==
LOC: C.EDB 23:07 → C.MS2W 05-14 04:14 → ENRESERV 05-14 04:19
PROVIDERS: ADMIT Internal Medicine; ATTEND Hospitalist
DX: J69.0 Pneumonitis due to inhalation of food and vomit (principal); N17.0 Acute kidney failure with tubular necrosis; J10.08 Influenza due to other identified influenza virus with other specified pneumonia; E87.6 Hypokalemia; E86.0 Dehydration; I10 Essential (primary) hypertension; D64.9 Anemia, unspecified; D69.6 Thrombocytopenia, unspecified; R73.9 Hyperglycemia, unspecified; T39.315A Adverse effect of propionic acid derivatives, initial encounter; R19.7 Diarrhea, unspecified; Z88.8 Allergy status to other drugs, medicaments and biological substances